=== PATIENT | male | born 1970 | race African-American/Black ===

== ENCOUNTER → 2018-08-23 | Outpatient (CLI) | payer BC ==
--- NOTE | 2018-08-23 15:00 | CARD ---
MR#: [id number] Date of Study: 08/23/2018 Ordering Physician: ERIK RUST, Referring Physician: ERIK RUST, Tech: Kelsey Persaud RDCS APPROVED REPORT EXAM: Two-dimensional and M-mode echocardiogram with Doppler and color Doppler. Other Information Quality : GoodHR: 69bpm Rhythm : NSR INDICATION Hypertension/HCVD 2D DIMENSIONS Left Atrium(2D)3.6 (1.6-4.0cm)IVSd1.2 (0.7-1.1cm) Aortic Root(2D)3.6 (2.0-3.7cm)LVDd5.3 (3.9-5.9cm) LVOT Diameter2.6 (1.8-2.4cm)PWd1.3 (0.7-1.1cm) LVDs3.9 (2.5-4.0cm)FS (%) 26.0 % SV67.4 mlLVEF(%)50.6 (>50%) Aortic Valve AoV Peak Kiko.146.2cm/sAoV VTI28.5cm AO Peak GR.8.5mmHgLVOT Peak Kiko.102.5cm/s AO Mean GR.5mmHgAVA (VMAX)3.62cm2 RANDELL (VTI)3.19ua8UK P 1/2 Neom018yf Mitral Valve MV E Xxxtijpi37.5cm/sMV DECEL [id number] MV A Atiftkxo16.8cm/sE/A Ratio0.6 MV A [id number] Pulmonary Valve PV Peak Lvzkqbxr06.2cm/s LEFT VENTRICLE The left ventricle is normal size. There is mild concentric left ventricular hypertrophy. Left ventri james systolic function is normal. The Ejection Fraction is 55%. There is normal LV segmental wall fay on. Transmitral Doppler flow pattern is Grade I-abnormal relaxation pattern. RIGHT VENTRICLE The right ventricle is normal size. There is normal right ventricular wall thickness. The right ventr icular systolic function is normal. ATRIA The left atrium size is normal. The right atrium size is normal. The interatrial septum is intact wit h no evidence for an atrial septal defect or patent foramen ovale as noted on 2-D or Doppler imaging. AORTIC VALVE The aortic valve is normal in structure and function. The aortic valve is trileaflet. Doppler and Col or Flow revealed trace aortic regurgitation. There is no significant aortic valvular stenosis. MITRAL VALVE The mitral valve is normal in structure and function. There is no evidence of mitral valve prolapse. There is no mitral valve stenosis. Doppler and Color-flow revealed trace mitral regurgitation. TRICUSPID VALVE The tricuspid valve is normal in structure and function. Doppler and Color Flow revealed no tricuspid valve regurgitation noted. There is no tricuspid valve prolapse or vegetation. There is no tricuspid valve stenosis. PULMONIC VALVE Pulmonic valve not well visualized. GREAT VESSELS The aortic root is mildly enlarged. The ascending aorta is Mildly dilated. The IVC is normal in size and collapses >50% with inspiration. PERICARDIAL EFFUSION There is no evidence of significant pericardial effusion. Critical Notification Critical Value: No <Conclusion> Left ventricle systolic function is normal. The Ejection Fraction is 55%. There is normal LV segmental wall motion. Transmitral Doppler flow pattern is Grade I-abnormal relaxation pattern. Doppler and Color-flow revealed trace mitral regurgitation. There is no evidence of significant pericardial effusion. Signed by : Arnaldo Parker, Electronically Approved : 08/23/2018 14:58:36
== END | disposition home or self-care (01) ==
LOC: ECHO 14:04
PROVIDERS: ATTEND Internal Medicine
DX: I11.9 Hypertensive heart disease without heart failure (principal)
CPT/HCPCS: 93306

== ENCOUNTER → 2020-08-13 | Outpatient (CLI) | payer BC, MEDICARE ==
[~2020-08-13] MED LIST: BUPIVACAINE MPF 0.5% 10 ML VIAL. IJ ONE; BUPIVACAINE MPF 0.5% 30 ML VIAL. IJ ONE; IOHEXOL 300 MG/ML 50 ML VIAL. IJ ONE; IOHEXOL 300 MG/ML 50 ML VIAL. ONE; LIDOCAINE 1% Multi-Dose 20 ML VIAL. ONE; methylPREDNISolone ACETATE 80 MG/ML VIAL. INJ ONE; methylPREDNISolone ACETATE 80 MG/ML VIAL. ONE
--- NOTE | 2020-08-13 17:15 | RAD ---
EXAM: Fluoroscopically guided left hip injection for local anesthesia. HISTORY: 49-year-old man with left hip osteoarthritis, referred for imaging guided hip injection for symptomatically relief. TECHNIQUE: The risks and benefits of the procedure were discussed with the patient and written and ve rbal consent were obtained. A time out procedure was performed. Fluoroscopic imaging of the left hip was performed. The overlying skin was sterilely prepped and infi ltrated with 1% lidocaine for local anesthesia. A 22-gauge spinal needle was then advanced into the j oint space under fluoroscopic guidance. Intra-articular positioning positioning was confirmed with a small injection of iodinated contrast. A cocktail containing 2 mL of 0.5 percent bupivacaine, and 80 mg of Depo-Medrol was injected into the left hip. Instrumentation was withdrawn and a sterile dressin g placed. There were no immediate complications. 3 images were obtained. Total fluoroscopy time was 0.5 minutes. IMPRESSION: Successful, uncomplicated fluoroscopically guided left hip local anesthetic injection wit h 80 mg Depo-Medrol and 2 mL of 0.5 percent bupivacaine. . Electronically signed by: Ana Lilia Nguyen MD (08/13/2020 5:13 PM) [facility]
== END | disposition home or self-care (01) ==
LOC: RAD 11:09
PROVIDERS: ATTEND Orthopaedic Surgery
DX: M16.12 Unilateral primary osteoarthritis, left hip (principal); I11.9 Hypertensive heart disease without heart failure; Z88.0 Allergy status to penicillin; Z87.891 Personal history of nicotine dependence
CPT/HCPCS: 20610; 77002; J1040; J3490; Q9967; 20605

== ENCOUNTER → 2020-09-02 | Outpatient (CLI) | payer BC, MEDICARE ==
--- NOTE | 2020-09-03 08:07 | CARD ---
MR#: [id number] Date of Study: 09/02/2020 Ordering Physician: DYLON JEAN, Referring Physician: DYLON JEAN, Tech: Rupa Sanches APPROVED REPORT EXAM: Two-dimensional and M-mode echocardiogram with Doppler and color Doppler. Other Information Quality : AverageHR: 63bpm INDICATION Hypertension/HCVD RISK FACTORS Hyperlipidemia Diabetes Smoking 2D DIMENSIONS RVDd4.0 (2.9-3.5cm)Left Atrium(2D)4.2 (1.6-4.0cm) IVSd1.2 (0.7-1.1cm)Aortic Root(2D)3.3 (2.0-3.7cm) LVDd5.9 (3.9-5.9cm)LVOT Diameter2.1 (1.8-2.4cm) PWd1.2 (0.7-1.1cm)LVDs4.3 (2.5-4.0cm) FS (%) 28.1 %SV94.1 ml LVEF(%)53.5 (>50%) Aortic Valve AoV Peak Kiko.170.6cm/sAoV VTI35.6cm AO Peak GR.11.6mmHgLVOT Peak Kiko.111.6cm/s LVOT VTI 24.42cmAO Mean GR.6mmHg RANDELL (VMAX)1.28jt1SLK (VTI)2.40cm2 AI P 1/2 Paky209yp Mitral Valve MV E Evgjkclk01.4cm/sMV DECEL [id number] MV A Gxauyteh27.6cm/sMV VQB86ai E/A Ratio0.8MVA (PHT)4.65cm2 TDI E/Lateral E'4.8E/Medial E'6.4 Pulmonary Valve PV Peak Gyqhldsv35.0cm/sPV Peak Grad.4mmHg Pulmonary Vein S1 Gkuobbnm16.6cm/sD2 Fatmwnso54.2cm/s PVa [id number] LEFT VENTRICLE The Left Ventricle is borderline dilated. There is mild concentric left ventricular hypertrophy. The left ventricular systolic function is normal and the ejection fraction is within normal range. The Ej ection Fraction is 50-55%. There is normal LV segmental wall motion. Transmitral Doppler flow pattern is Grade I-abnormal relaxation pattern. RIGHT VENTRICLE The right ventricle is normal size. There is normal right ventricular wall thickness. The right ventr icular systolic function is normal. ATRIA The left atrium is borderline dilated. The right atrium size is normal. The interatrial septum is int act with no evidence for an atrial septal defect or patent foramen ovale as noted on 2-D or Doppler i maging. AORTIC VALVE The aortic valve is thickened but opens well. Doppler and Color Flow revealed mild aortic regurgitati on. There is no significant aortic valvular stenosis. Calculated aortic valve area is 2.48 cm2 with m aximum pressure gradient of 14 mmHg and mean pressure gradient of 6 mmHg. MITRAL VALVE The mitral valve is normal in structure and function. There is no evidence of mitral valve prolapse. There is no mitral valve stenosis. Doppler and Color-flow revealed trace mitral regurgitation. TRICUSPID VALVE The tricuspid valve is normal in structure and function. Doppler and Color Flow revealed no tricuspid valve regurgitation noted. There is no tricuspid valve stenosis. PULMONIC VALVE Doppler and Color Flow revealed trace pulmonic valvular regurgitation. There is no pulmonic valvular stenosis. GREAT VESSELS The aortic root is normal in size. The ascending aorta is normal in size. The IVC is normal in size a nd collapses >50% with inspiration. PERICARDIAL EFFUSION There is no evidence of significant pericardial effusion. Critical Notification Critical Value: No <Conclusion> The left ventricular systolic function is normal and the ejection fraction is within normal range. Th e Ejection Fraction is 50-55%. There is normal LV segmental wall motion. Doppler and Color Flow revealed mild aortic regurgitation. Signed by : Jose Luis Linares, Electronically Approved : 09/03/2020 08:07:07
== END ==
LOC: ECHO 11:06
PROVIDERS: ATTEND Internal Medicine Cardiovascular Disease
DX: I35.1 Nonrheumatic aortic (valve) insufficiency (principal); I11.9 Hypertensive heart disease without heart failure
CPT/HCPCS: 93306